=== PATIENT | male | born 1995 | race Caucasian/White ===

== ENCOUNTER 2017-08-16 21:48 | Emergency (ER) | payer BC ==
--- NOTE | 2017-08-16 21:52 | ER Report ---
History and Physical Time Seen By MD: 21:51 HPI/ROS CHIEF COMPLAINT: Left clavicle pain HISTORY OF PRESENT ILLNESS: Patient is a 21-year-old male here after falling off of a bull. Patient denies loss of consciousness neck pain, chest pain, shortness of breath. Patient is neurovascularly intact at time of evaluation distal to the injury site. Lungs: Clear to auscultation bilaterally. Denies other pain. REVIEW OF SYSTEMS: Constitutional: No fever, no chills. Eyes: No discharge. ENT: No sore throat. Cardiovascular: No chest pain, no palpitations. Respiratory: No cough, no shortness of breath. Gastrointestinal: No abdominal pain, no vomiting. Genitourinary: No hematuria. Musculoskeletal: No back pain. Skin: No rashes. Neurological: No headache, + left shoulder and clavicle pain Allergies: Coded Allergies: No Known Drug Allergies (Unverified , 08/16/17) Home Meds Active Scripts Tramadol Hcl (TRAMADOL HCL) 50 Mg Tablet, 50 MG PO Q6H Y for PAIN, #12 TAB 0 Refills Prov:MARRY MOTA DO 08/16/17 Constitutional Vital Sign - Last 24 Hours 08/16/17 08/16/17 08/16/17 08/16/17 21:56 22:00 22:03 22:18 Temp 99.3 Pulse 77 67 ??? Resp 20 B/P (MAP) 154/95 153/100 (117) Pulse Ox 94 94 94 O2 Delivery Room Air 08/16/17 08/16/17 08/16/17 08/16/17 22:48 23:00 23:03 23:08 Pulse 67 78 78 B/P (MAP) 154/91 (112) Pulse Ox 97 98 95 Physical Exam General Appearance: The patient is alert, has no immediate need for airway protection and no signs of toxicity. NAD Eyes: Pupils equal and round no pallor or injection. ENT, Mouth: Mucous membranes are moist. Respiratory: There are no retractions, lungs are clear to auscultation. Cardiovascular: Regular rate and rhythm. Gastrointestinal: Abdomen is soft and non tender, no masses, bowel sounds normal. Neurological: + no focal neuro deficits Skin: Warm and dry, no rashes. Musculoskeletal: + left mid clavicular deformity Extremities are nontender, nonswollen and have full range of motion. DIFFERENTIAL DIAGNOSIS: After history and physical exam differential diagnosis was considered for fracture, contusion, abrasion, dislocation Medical Decision Making EKG/Imaging Imaging CHEST PA AND LAT HISTORY: Fall from a bucking horse. COMPARISON: None. Left clavicle left shoulder x-rays were performed concurrently. TECHNIQUE: PA and lateral views of the chest. FINDINGS: Patient was unable to lift his left arm due to pain. Pulmonary: Lungs are clear. There is no pneumothorax or pleural effusion. Cardiomediastinal: Cardiac and mediastinal silhouettes are within normal limits. Bones/soft tissues: There is an acute mid left clavicle fracture with one-half shaft width superior displacement of the proximal fracture fragment compared to the distal. The visible abdomen is normal. IMPRESSION: 1. Displaced left clavicular fracture. 2. No acute cardiopulmonary process. SHOULDER MIN 2 VIEWS LEFT HISTORY: Fall from a bucking horse. COMPARISON: None. Left clavicle and chest x-rays were performed concurrently. TECHNIQUE: AP and scapular Y views of the left shoulder. FINDINGS: There is a mid left clavicle fracture with one-half shaft width superior displacement of the proximal fracture fragment compared to the distal. No acromioclavicular joint separation. No shoulder dislocation. The visible thorax is normal. IMPRESSION: 1. Displaced mid left clavicle fracture. CLAVICLE LEFT HISTORY: Fall from a bucking horse. COMPARISON: None. Chest and left shoulder x-rays were performed concurrently. TECHNIQUE: AP and AP axial views of the left clavicle. FINDINGS: There is a mid left clavicle fracture with approximately one-half shaft width superior displacement of the proximal fracture fragment compared to the distal. No acromioclavicular joint separation. IMPRESSION: 1. Displaced left clavicle fracture. ED Course/Re-evaluation ED Course Patient is a 21-year-old male here with complaints of left clavicular pain after falling off of a bucking horse. X-rays of the chest, shoulder, clavicle showed a displaced left clavicular fracture. Patient was placed in a sling and advised to follow up with orthopedics in 1 week. Patient was neurovascularly intact at time of discharge. He was given a prescription for tramadol for home and analgesia. Patient was understanding of the plan and reasons to promptly return. Decision to Disposition Date: Aug 16, 2017 Decision to Disposition Time: 23:26 Depart Departure Latest Vital Signs Vital Signs Date Time Temp Pulse Resp B/P (MAP) Pulse Ox O2 Delivery O2 Flow Rate FiO2 08/16/17 23:08 78 95 08/16/17 23:00 154/91 (112) 08/16/17 21:56 99.3 20 Room Air Impression: Primary Impression: Fracture, clavicle closed, shaft Condition: Improved Disposition: HOME OR SELF-CARE New Scripts Tramadol Hcl (TRAMADOL HCL) 50 Mg Tablet 50 MG PO Q6H Y for PAIN, #12 TAB 0 Refills Prov: MARRY MOTA DO 08/16/17 Patient Instructions: Clavicle Fracture (ED) Additional Instructions: Please follow up with orthopedics in one week for further evaluation of clavicle fracture. You may take 1 tablet of tramadol every 6-8 hours as needed for pain control. He is return promptly if you develop numbness, tingling, increased weakness, fevers, increased pain MARRY MOTA DO Aug 16, 2017 21:52
[2017-08-16 23:00] VITALS: BP 154/91
--- NOTE | 2017-08-16 23:05 | RADIOLOGY IMAGING REPORT ---
FACILITY: [facility] PATIENT NAME: Ever Adams : 1995 MR: [id number] V: [id number] EXAM DATE: ORDERING PHYSICIAN: MARRY MOTA TECHNOLOGIST: Location: [facility] - [place] Patient: Ever Adams : 1995 Visit/Account:[id number] Date of Sevice: 08/16/2017 CHEST PA AND LAT HISTORY: Fall from a bucking horse. COMPARISON: None. Left clavicle left shoulder x-rays were performed concurrently. TECHNIQUE: PA and lateral views of the chest. FINDINGS: Patient was unable to lift his left arm due to pain. Pulmonary: Lungs are clear. There is no pneumothorax or pleural effusion. Cardiomediastinal: Cardiac and mediastinal silhouettes are within normal limits. Bones/soft tissues: There is an acute mid left clavicle fracture with one-half shaft width superior d isplacement of the proximal fracture fragment compared to the distal. The visible abdomen is normal. IMPRESSION: 1. Displaced left clavicular fracture. 2. No acute cardiopulmonary process. Report Dictated By: Susie Guerrero at 08/16/2017 11:00 PM Report E-Signed By: Susie Guerrero at 08/16/2017 11:02 PM WSN:[id number]
--- NOTE | 2017-08-16 23:08 | RADIOLOGY IMAGING REPORT ---
[place] [facility] [place] NAME: Ever Adams : 1995 MR: [id number] V: [id number] EXAM DATE: ORDERING PHYSICIAN: MARRY MOTA TECHNOLOGIST: Location: [facility] [place] Patient: Ever Adams : 1995 Visit/Account:[id number] Date of Sevice: 08/16/2017 CLAVICLE LEFT HISTORY: Fall from a bucking horse. COMPARISON: None. Chest and left shoulder x-rays were performed concurrently. TECHNIQUE: AP and AP axial views of the left clavicle. FINDINGS: There is a mid left clavicle fracture with approximately one-half shaft width superior disp lacement of the proximal fracture fragment compared to the distal. No acromioclavicular joint separat ion. IMPRESSION: 1. Displaced left clavicle fracture. Report Dictated By: Susie Guerrero at 08/16/2017 11:02 PM Report E-Signed By: Susie Guerrero at 08/16/2017 11:04 PM WSN:[id number]
--- NOTE | 2017-08-16 23:10 | RADIOLOGY IMAGING REPORT ---
[facility] PATIENT NAME: Ever Adams : 1995 MR: [id number] V: [id number] EXAM DATE: ORDERING PHYSICIAN: MARRY MOTA TECHNOLOGIST: Location: [facility] - [place] Patient: Ever Adams : 1995 Visit/Account:[id number] Date of Sevice: 08/16/2017 SHOULDER MIN 2 VIEWS LEFT HISTORY: Fall from a bucking horse. COMPARISON: None. Left clavicle and chest x-rays were performed concurrently. TECHNIQUE: AP and scapular Y views of the left shoulder. FINDINGS: There is a mid left clavicle fracture with one-half shaft width superior displacement of th e proximal fracture fragment compared to the distal. No acromioclavicular joint separation. No should er dislocation. The visible thorax is normal. IMPRESSION: 1. Displaced mid left clavicle fracture. Report Dictated By: Susie Guerrero at 08/16/2017 11:04 PM Report E-Signed By: Susie Guerrero at 08/16/2017 11:06 PM WSN:[id number]
[2017-08-16] MEDS ORDERED: TRAM-420 PO (23:19)
[2017-08-16] MEDS ORDERED: oxyCODONE/ACETAMIN 5/325MG TH 2 TAB/BOTTLE PO ONE (23:20)
== END 2017-08-16 23:28 | disposition home or self-care (01) ==
LOC: ER 21:55
DX: S42.025A Nondisplaced fracture of shaft of left clavicle, initial encounter for closed fracture (principal)
CPT/HCPCS: 71046; 99284; L3982